=== PATIENT | female | born 1985 | race Two or more races ===

== ENCOUNTER 2017-08-28 23:50 | Emergency (ER) | payer OTHER ==
[2017-08-28 23:52] VITALS: BMI 28.6
--- NOTE | 2017-08-29 00:32 | C.PDOC ---
History Of Present Illness 32 y/o female presents to ED for complaints of palpitations. Patient states that 3 days ago she began a new dietary regiment that includes shakes with herbs to lose weight and since then palpitations began. Patient reports symptoms are continuous since 6PM and she describes symptom as pounding but non painful. Denies chest pain, SOB, or drug use. Patient admits to drinking caffeinated beverages, mostly coffee. She also states that she took cough syrup last night as a cold remedy. Chief Complaint (Nursing): Palpitations History Per: Patient History/Exam Limitations: no limitations Current Symptoms Are (Timing): Still Present Past Medical History Reviewed: Historical Data, Nursing Documentation, Vital Signs Vital Signs: Last Vital Signs Temp 98.1 F 08/29/17 01:28 Pulse 84 08/29/17 01:28 Resp 18 08/29/17 01:28 BP 108/49 L 08/29/17 01:28 Pulse Ox 98 08/29/17 01:28 - Medical History PMH: No Chronic Diseases Surgical History: No Surg Hx Family History: States: Unknown Family Hx - Social History Hx Tobacco Use: No Hx Alcohol Use: No Hx Substance Use: No - Immunization History Hx Tetanus Toxoid Vaccination: No Hx Influenza Vaccination: No Hx Pneumococcal Vaccination: No Review Of Systems Constitutional: Negative for: Fever, Chills Cardiovascular: Positive for: Palpitations. Negative for: Chest Pain Respiratory: Negative for: Cough, Shortness of Breath Gastrointestinal: Negative for: Nausea, Vomiting, Diarrhea Neurological: Negative for: Weakness, Numbness Physical Exam - Physical Exam Appears: Non-toxic, No Acute Distress, Other (While on monitor noticed unifocal PVC) Skin: Normal Color, Warm, Dry Head: Atraumatic, Normacephalic Eye(s): bilateral: Normal Inspection Oral Mucosa: Moist Neck: Supple Chest: Symmetrical, No Tenderness Cardiovascular: Rhythm Regular Respiratory: Normal Breath Sounds, No Decreased Breath Sounds, No Rales, No Rhonchi, No Wheezing Gastrointestinal/Abdominal: Soft, No Tenderness, No Distention, No Guarding, No Rebound Neurological/Psych: Oriented x3, Normal Speech, Normal Cognition ED Course And Treatment - Laboratory Results Result Diagrams: 08/29/17 01:34 08/29/17 01:34 O2 Sat by Pulse Oximetry: 100 (RA) Pulse Ox Interpretation: Normal Medical Decision Making Medical Decision Making: Impression: - Palpitations likely related to diet shakes and/or caffeine/ cold remedy Plan: - Routine blood work - Watch monitor, if normal patient will be discharged. EKG Results: - Normal sinus rhythm without ectopy - All intervals within normal limits - Normal axis Repeated EKG demonstrates rare, nonfocal PVC's Disposition - Disposition Referrals: [facility] at [facility] [Outside] Disposition: HOME/ ROUTINE Disposition Time: 07:17 Condition: GOOD Instructions: Palpitations Forms: Gen Discharge Inst Kazakh, [facility] (Slovak) Print Language: DIVEHI - Clinical Impression Clinical Impression: Palpitations - Scribe Statement The provider has reviewed the documentation as recorded by the Scribe Adebayo Craft All medical record entries made by the Scribe were at my direction and personally dictated by me. I have reviewed the chart and agree that the record accurately reflects my personal performance of the history, physical exam, medical decision making, and the department course for this patient. I have also personally directed, reviewed, and agree with the discharge instructions and disposition.
[2017-08-29 01:38] LABS: BASO # 0.1 K/uL (0.0-0.2); EOS # 0.1 K/uL (0.0-0.7); EOS % 1.4 % (0.0-4.0); HEMOGLOBIN 9.2 g/dL (11.0-16.0); LYMPH # 1.9 K/uL (1.0-4.3); LYMPH % 24.6 % (20.0-40.0); MEAN CELL VOLUME 73.1 fL (81.0-99.0); MEAN CORPUSCULAR HGB CONC 31.4 g/dL (33.0-37.0); MONO # 0.7 K/uL (0.0-0.8); MONO % 8.8 % (0.0-10.0); NEUT % 64.2 % (50.0-75.0); RED CELL DISTRIBUTION WIDTH 16.1 % (11.5-14.5); WHITE BLOOD COUNT 7.8 K/uL (4.8-10.8)
[2017-08-29 01:46] VITALS: BP 108/49; PULSE 84; RESP 18; TEMP 98.1
[2017-08-29 01:49] LABS: ALBUMIN 3.9 g/dL (3.5-5.0); ALT/SGPT 24 U/L (9-52); AST/SGOT 19 U/L (14-36); BLOOD UREA NITROGEN 12 mg/dL (7-17); CALCIUM 8.7 mg/dl (8.6-10.4); GFR AFRICAN-AMERICAN > 60; GFR NON-AFRICAN AMERICAN > 60
[2017-08-29 07:17] VITALS: O2SAT 100
--- NOTE | 2017-08-31 13:02 | CARD ---
APPROVED REPORT EKG Measurement Heart [id number] <Conclusion> Sinus rhythm with occasional premature ventricular complexes Otherwise normal ECG
== END 2017-08-29 02:19 | disposition home or self-care (01) ==
LOC: C.ER 23:50
DX: R00.2 Palpitations (principal)

== ENCOUNTER 2018-04-04 15:39 | Emergency (ER) | payer MEDICAID, OTHER ==
[2018-04-04 15:39] VITALS: BMI 28.6
--- NOTE | 2018-04-04 16:10 | C.PDOC ---
History Of Present Illness 32 year old female presents to the ED with abdominal pain and vaginal bleeding since 6am this morning. Patient is 5-6 weeks along in her . Patients obstetric history is 4, Para 1 and 2 abortions. She notes having a minor vaginal bleed about a week ago but this time it is much heavier with clots. Denies any fever, vomiting, nausea and chills. <BrianNichelle - Last Filed: 04/04/18 18:32> History Per: Patient History/Exam Limitations: no limitations Onset/Duration Of Symptoms: Hrs Current Symptoms Are (Timing): Still Present Associated Symptoms: denies: Fever, Vomiting Recent travel outside of the [place]: No <BrianNichelle - Last Filed: 04/04/18 18:32> <Juan Ackerman - Last Filed: 04/04/18 20:46> Time Seen by Provider: 04/04/18 16:01 Chief Complaint (Nursing): Female Genitourinary PMH Reviewed: Historical Data, Nursing Documentation, Vital Signs - Family History Family History: States: Unknown Family Hx - Immunization History Hx Tetanus Toxoid Vaccination: No Hx Influenza Vaccination: No Hx Pneumococcal Vaccination: No <BrianNichelle Molina Last Filed: 04/04/18 18:32> Review Of Systems Constitutional: Negative for: Fever, Chills Gastrointestinal: Positive for: Abdominal Pain. Negative for: Nausea, Vomiting Genitourinary: Positive for: Vaginal Bleeding <BrianNichelle Molina Last Filed: 04/04/18 18:32> Pedatric Physical Exam - Physical Exam Appears: Well Appearing, Non-toxic, No Acute Distress Skin: Normal Color, Warm, Dry Head: Atraumatic, Normacephalic Eye(s): bilateral: Normal Inspection Oral Mucosa: Moist Neck: Normal ROM, Supple Chest: Symmetrical Gastrointestinal/Abdominal: Normal Exam, Soft, No Tenderness Extremity: Normal ROM, No Tenderness Extremity: Bilateral: Atraumatic Neurological/Psych: Oriented x3, Normal Speech, Normal Cognition Gait: Steady <BrianNichelle Tracy Last Filed: 04/04/18 18:32> ED Course And Treatment - Laboratory Results Result Diagrams: 04/04/18 17:05 04/04/18 17:05 O2 Sat by Pulse Oximetry: 98 (RA) Pulse Ox Interpretation: Normal <BrianNichelle Tracy Last Filed: 04/04/18 18:32> - Laboratory Results Result Diagrams: 04/04/18 17:05 04/04/18 17:05 <Juan Ackerman - Last Filed: 04/04/18 20:46> Medical Decision Making Medical Decision Making: Assessment: 32 year old female presents to the ED with abdominal pain and vaginal bleeding since 6am this morning. Plan: -CMP -CBC -Type and Screen Stat -Beta-HCG, Quantitative Stat -Urinalysis -Pelvis US -Transvaginal US Progress/updates: Blood work, urinalysis and ultrasounds ordered. <Nichelle Torres - Last Filed: 04/04/18 18:32> Disposition - Disposition Disposition Time: 19:00 <Nichelle Torres - Last Filed: 04/04/18 18:32> Counseled Patient/Family Regarding: Studies Performed, Diagnosis, Need For Followup, Rx Given <Juan Ackerman - Last Filed: 04/04/18 20:46> - Disposition Referrals: Luis Juarez MD [Medical Doctor] - Disposition: HOME/ ROUTINE Condition: FAIR Additional Instructions: Please follow up with your [employer] Prescriptions: Nitrofurantoin Macrocrystals [Macrobid] 1 cap PO BID #14 cap Instructions: Threatened Miscarriage (DC), Urinary Tract Infection, Adult (DC) Forms: [facility] (Malagasy) - Clinical Impression Clinical Impression: Threatened miscarriage, UTI (urinary tract infection) during - Scribe Statement The provider has reviewed the documentation as recorded by the Scribe (Tess Clayton) All medical record entries made by the Scribe were at my direction and personally dictated by me. I have reviewed the chart and agree that the record accurately reflects my personal performance of the history, physical exam, medic al decision making, and the department course for this patient. I have also personally directed, reviewed, and agree with the discharge instructions and disposition. <Nichelle Torres - Last Filed: 04/04/18 18:32> Physician Patient Turnover Patient Signed Over To: Juan Ackerman Handoff Comments: LAURIE CRESPO, DISPO <Nichelle Torres - Last Filed: 04/04/18 18:32>
[2018-04-04 17:04] LABS: SQUAMOUS EPITHIAL 7 /hpf (0-5); URINE BACTERIA MOD (<OCC); URINE BILIRUBIN NEGATIVE (NEGATIVE); URINE BLOOD 3+ (NEGATIVE); URINE CLARITY Hazy (Clear); URINE COLOR Yellow (YELLOW); URINE GLUCOSE (UA) NORMAL (Normal); URINE LEUKOCYTE ESTERASE NEG Leu/uL (Negative); URINE PROTEIN NEGATIVE (NEGATIVE); URINE UROBILINOGEN NORMAL mg/dL (0.2-1.0)
[2018-04-04 17:10] LABS: BASO # 0.1 K/uL (0.0-0.2); BASO % 0.9 % (0.0-2.0); EOS % 0.5 % (0.0-4.0); LYMPH # 1.5 K/uL (1.0-4.3); LYMPH % 23.1 % (20.0-40.0); MEAN CELL VOLUME 84.4 fL (81.0-99.0); MEAN CORPUSCULAR HGB CONC 33.2 g/dL (33.0-37.0); MEAN PLATELET VOLUME 9.1 fL (7.2-11.7); MONO # 0.5 K/uL (0.0-0.8); MONO % 7.2 % (0.0-10.0); NEUT # 4.3 K/uL (1.8-7.0); NEUT % 68.3 % (50.0-75.0); RBC 4.29 Mil/uL (3.80-5.20); RED CELL DISTRIBUTION WIDTH 13.5 % (11.5-14.5); WHITE BLOOD COUNT 6.3 K/uL (4.8-10.8)
[2018-04-04 17:24] LABS: ALB/GLOB RATIO 1.2 (1.0-2.1); ALBUMIN 3.9 g/dL (3.5-5.0); ALT/SGPT 13 U/L (9-52); AST/SGOT 13 U/L (14-36); BLOOD UREA NITROGEN 11 mg/dL (7-17); CALCIUM 9.2 mg/dl (8.6-10.4); GFR NON-AFRICAN AMERICAN > 60
[2018-04-04 21:06] VITALS: BP 133/75; PULSE 83; RESP 18; TEMP 99.1; O2SAT 98
--- NOTE | 2018-04-05 10:22 | US ---
Date of service: 04/04/2018 PROCEDURE: OB Pelvic Ultrasound HISTORY: VB RO ECTOPIC COMPARISON: None available. TECHNIQUE: Transabdominal and transvaginal pelvic ultrasound was performed. FINDINGS: UTERUS: Single Live intrauterine gestation. CRL measures 0.43 cm equivalent to 6 weeks and 1 day of gestational age. Gestational sac diameter measures 2.11 cm equivalent to 6 weeks and 4 days of gestational age. age (Ultrasound estimated): 6 weeks and 3 days Date of delivery (Ultrasound estimated) : 11/25/2018 Heart rate: 112 bpm. Diana-gestational hemorrhage: None. Measures 11.5 x 5.9 x 6 cm. Anteverted and enlarged. There is a 2.2 x 2.0 x 2.7 cm posterior wall intramural fibroid in the midbody to the right and 2.1 x 2.3 x 2.1 cm intramural fibroid in the midbody, there is a 2.1 x 2.2 x 2.6 cm subserosal posterior fundal fibroid. CERVIX: Long and closed. No cervical abnormality seen. RIGHT OVARY: Measures 3.7 x 2.3 x 3.5 cm. No mass. Normal flow. LEFT OVARY: Measures 2.8 x 1.6 x 2.3 cm. No mass. Normal flow. FREE FLUID: None. OTHER FINDINGS: None. IMPRESSION: Fibroid uterus, the largest intramural posterior wall fibroid in the midbody measures 2.2 x 2.0 x 2.7 cm. Single live intrauterine gestation with mean gestational age of 6 weeks and 3 days. The estimated date of delivery by ultrasound is 11/25/2018. The ultrasound dates correspond with the clinical dates.
== END 2018-04-04 21:08 | disposition home or self-care (01) ==
LOC: C.ER 15:39
DX: O23.41 Unspecified infection of urinary tract in pregnancy, first trimester (principal); O20.0 Threatened abortion; Z3A.01 Less than 8 weeks gestation of pregnancy

== ENCOUNTER 2018-05-19 14:38 | Emergency (ER) | payer MEDICAID ==
[2018-05-19 14:38] VITALS: BMI 28.6
[2018-05-19 14:51] VITALS: RESP 18
[2018-05-19] MEDS ORDERED: Sodium Chloride 0.9% 1,000 ML IV STA (15:21)
--- NOTE | 2018-05-19 15:34 | C.PDOC ---
History Of Present Illness 32 y/o female, ,presents to the ER for evaluation of vaginal bleeding in . Patient states that she had vaginal bleeding with clots today.Patient reports that she is 12 weeks and her LMP was on 02/24/18. She notes that she has US scheduled tomorrow for her . Currently, she denies having abdominal pain, pelvic pain , nausea, vomiting, fever, and chills. Time Seen by Provider: 05/19/18 15:05 Chief Complaint (Nursing): Female Genitourinary History Per: Patient History/Exam Limitations: no limitations Onset/Duration Of Symptoms: Hrs Current Symptoms Are (Timing): Still Present Severity: Moderate Past Medical History Reviewed: Historical Data, Nursing Documentation, Vital Signs Vital Signs: Last Vital Signs Temp 98.1 F 05/19/18 14:47 Pulse 80 05/19/18 14:47 Resp 18 05/19/18 14:47 BP 130/81 05/19/18 14:47 Pulse Ox 97 05/19/18 14:47 - Medical History PMH: No Chronic Diseases Other Surgeries: Hx of surgeries Family History: States: No Known Family Hx - Social History Hx Tobacco Use: No Hx Alcohol Use: No Hx Substance Use: No - Immunization History Hx Tetanus Toxoid Vaccination: No Hx Influenza Vaccination: No Hx Pneumococcal Vaccination: No Review Of Systems Except As Marked, All Systems Reviewed And Found Negative. Constitutional: Negative for: Fever, Chills Gastrointestinal: Negative for: Nausea, Vomiting, Abdominal Pain Genitourinary: Positive for: Vaginal Bleeding. Negative for: Pelvic Pain Physical Exam - Physical Exam Additional Physical Exam Comments: Constitutional: No acute distress. Head: Normocephalic. Atraumatic. Eyes: PERRL. ENT: Moist mucous membranes. Neck: Supple. Cardiovascular: Regular rate. Radial pulse 2+ bilaterally. Chest: No tenderness. Respiratory: Clear to auscultation bilaterally. GI: Soft. Nontender. Nondistended. Back: No CVA tenderness. Musculoskeletal: No tenderness or swelling of extremities. Skin: No rash. Neurologic: Alert, no focal deficit. ED Course And Treatment - Laboratory Results Result Diagrams: 05/19/18 15:50 05/19/18 15:50 O2 Sat by Pulse Oximetry: 97 (RA) Pulse Ox Interpretation: Normal Medical Decision Making Medical Decision Making: Plan: --Labs --UA --US- Transvag. --IV Fluids Disposition - Disposition Disposition: HOME/ ROUTINE Disposition Time: 18:49 Condition: STABLE Additional Instructions: Keep OBGYN appointment. Ultrasound Findings: Uterus measures approximately 18.0 x 7.1 x 13 cm. Anteverted. Multiple probable uterine fibroids. For example: 2.7 x 2.8 x 3.7 cm mid uterine intramural fibroid; 2.1 x 1.4 x 2.6 cm mid uterine fibroid; 2.9 x 2.0 x 3.6 cm fundal fibroid. Cervix length measures 3.9 cm. There is a single intrauterine fetus present. Yolk sac is not visualized. The gestational sac measures 7.1 cm, out of range for gestational age calculation. The crown-rump length measures 6.9 cm and is compatible with a gestational age of 13 weeks 1 day. There is heart motion which measured 156 BPM. Bilateral ovaries were not visualized. Impression: Live single intrauterine with estimated gestational age 13 weeks 1 day by crown-rump length calculation. heart rate 156 bpm. Advise an anomaly screen at 16-18 weeks gestational age Fibroid uterus. Instructions: Threatened Miscarriage Forms: [facility] (Khmer) - Clinical Impression Clinical Impression: Threatened - Scribe Statement The provider has reviewed the documentation as recorded by the Manish Owen Provider Attestation: All medical record entries made by the Lachelleibe were at my direction and personally dictated by me. I have reviewed the chart and agree that the record accurately reflects my personal performance of the history, physical exam, medical decision making, and the department course for this patient. I have also personally directed, reviewed, and agree with the discharge instructions and disposition.
[2018-05-19] MEDS ORDERED: Sodium Chloride 0.9% 1,000 ML ONE (15:56)
[2018-05-19 16:17] LABS: BASO % 0.3 % (0.0-2.0); EOS % 0.2 % (0.0-4.0); HEMOGLOBIN 12.8 g/dL (11.0-16.0); LYMPH # 0.9 K/uL (1.0-4.3); LYMPH % 11.1 % (20.0-40.0); MEAN CELL VOLUME 83.4 fL (81.0-99.0); MEAN CORPUSCULAR HEMOGLOBIN 28.1 pg (27.0-31.0); MEAN CORPUSCULAR HGB CONC 33.7 g/dL (33.0-37.0); MONO # 0.6 K/uL (0.0-0.8); MONO % 6.9 % (0.0-10.0); NEUT # 6.9 K/uL (1.8-7.0); NEUT % 81.5 % (50.0-75.0); RBC 4.57 Mil/uL (3.80-5.20); RED CELL DISTRIBUTION WIDTH 14.6 % (11.5-14.5); WHITE BLOOD COUNT 8.5 K/uL (4.8-10.8)
[2018-05-19 16:23] LABS: ALBUMIN 3.7 g/dL (3.5-5.0); ALT/SGPT 22 U/L (9-52); AST/SGOT 20 U/L (14-36); BLOOD UREA NITROGEN 7 mg/dL (7-17); CALCIUM 9.2 mg/dl (8.6-10.4); GFR NON-AFRICAN AMERICAN > 60
[2018-05-19 16:36] LABS: SQUAMOUS EPITHIAL 16 /hpf (0-5); URINE AMORPHOUS SEDIMENT OCC /ul (<OCC); URINE BACTERIA RARE (<OCC); URINE BILIRUBIN NEGATIVE (NEGATIVE); URINE BLOOD 3+ (NEGATIVE); URINE CLARITY Hazy (Clear); URINE COLOR Yellow (YELLOW); URINE GLUCOSE (UA) NORMAL (Normal); URINE LEUKOCYTE ESTERASE NEG Leu/uL (Negative); URINE PROTEIN 1+ mg/dL (NEGATIVE); URINE UROBILINOGEN NORMAL mg/dL (0.2-1.0)
--- NOTE | 2018-05-19 18:45 | US ---
Date of service: 05/19/2018 Indication: vag bleed in , assess cervix Comparison: 1st trimester ultrasound/Ob transvaginal ultrasound performed 04/04/18 Technique: Real-time transabdominal pelvic ultrasound was performed. In addition a transvaginal pelvic ultrasound was necessary to better depict pelvic anatomy. Findings: Uterus measures approximately 18.0 x 7.1 x 13 cm. Anteverted. Multiple probable uterine fibroids. For example: 2.7 x 2.8 x 3.7 cm mid uterine intramural fibroid; 2.1 x 1.4 x 2.6 cm mid uterine fibroid; 2.9 x 2.0 x 3.6 cm fundal fibroid. Cervix length measures 3.9 cm. There is a single intrauterine fetus present. Yolk sac is not visualized. The gestational sac measures 7.1 cm, out of range for gestational age calculation. The crown-rump length measures 6.9 cm and is compatible with a gestational age of 13 weeks 1 day. There is heart motion which measured 156 BPM. Bilateral ovaries were not visualized. Impression: Live single intrauterine with estimated gestational age 13 weeks 1 day by crown-rump length calculation. heart rate 156 bpm. Advise an anomaly screen at 16-18 weeks gestational age Fibroid uterus.
[2018-05-19 19:03] VITALS: BP 116/69; PULSE 99; TEMP 98.5; O2SAT 98
== END 2018-05-19 19:01 | disposition home or self-care (01) ==
LOC: C.ER 14:38
DX: O20.0 Threatened abortion (principal); Z3A.13 13 weeks gestation of pregnancy
CPT/HCPCS: 76801; 80053; 81001; 84702; 85025; 86850; 86900; 87086; 99285; J7030